=== PATIENT | female | born 1965 | race Caucasian/White ===

== ENCOUNTER 2021-05-26 17:09 | Emergency (ER) | payer BC ==
[2021-05-26] MEDS ORDERED: NA CHLORIDE 0.9% 1,000 ML ONE (18:18)
[2021-05-26] MEDS ORDERED: ONDANSETRON 4 MG/2 ML VIAL ONE (18:18)
[2021-05-26 18:39] LABS: Absolute Lymphocytes (CBC) 0.5 K/uL (0.7-4.9); Basophils % 0.2 % (0-1.3); Lymphocytes % 2.8 % (15.3-44.8); MPV 8.8 fL (7.6-11.3)
[2021-05-26 18:56] LABS: Albumin 3.9 g/dL (3.4-5.0); Bilirubin Direct 0.2 mg/dL (0-0.2); Bilirubin Total 0.7 mg/dL (0.2-1.0); Potassium 3.6 mmol/L (3.5-5.1); Protein, Total 8.6 g/dL (6.4-8.2)
--- NOTE | 2021-05-26 19:32 | RAD REPORT ---
EXAM DESCRIPTION: CTAbdomen Pelvis W Contrast - 05/26/2021 7:18 pm CLINICAL HISTORY: Abdominal pain. Abd pain;Nausea / vomiting COMPARISON: CT ABD PELVIS W CONTRAST dated 09/11/2011 TECHNIQUE: Biphasic CT imaging of the abdomen and pelvis was performed with 100 ml non-ionic IV cont rast. All CT scans are performed using dose optimization technique as appropriate and may include automated exposure control or mA/KV adjustment according to patient size. FINDINGS: The lung bases are clear.Small hiatal hernia. The liver demonstrates mild fatty infiltration. Spleen, pancreas, adrenal glands and kidneys are with in normal limits. No bowel obstruction, free air, free fluid or abscess. The appendix is normal. No evidence of signi ficant lymphadenopathy. No suspicious bony findings. IMPRESSION: No acute intra-abdominal or pelvic finding.
[2021-05-26 19:35] LABS: SARS-COV-2 RT PCR NEGATIVE (NEGATIVE)
--- NOTE | 2021-05-26 20:21 | ER ---
Nurse's Notes [facility] Name: Alba Grimes Age: 55 yrs Sex: Female : 1965 Arrival Date: 05/26/2021 Time: 17:12 Bed 15 Private MD: Diagnosis: Vomiting;Diarrhea, unspecified;Elevated white blood cell count Presentation: 05/26 17:17 Chief complaint: Patient states: n/v/d started this am no fever. Coronavirus screen: [facility] Vaccine status: Patient reports receiving the 2nd dose of the covid vaccine. Ebola Screen: No symptoms or risks identified at this time. Initial Sepsis Screen: Does the patient meet any 2 criteria? No. Patient's initial sepsis screen is negative. Does the patient have a suspected source of infection? Yes: No. Patient's initial sepsis screen is negative. Risk Assessment: Do you want to hurt yourself or someone else? Patient reports no desire to harm self or others. Onset of symptoms was May 25, 2021. 17:17 Method Of Arrival: Ambulatory [facility] 17:17 Acuity: BRIANNE [address] [facility] Triage Assessment: 17:21 General: Appears in no apparent distress. uncomfortable, well groomed, well nourished, [facility] Behavior is calm, cooperative. Pain: Complains of pain in epigastric area Pain does not radiate. Pain currently is 10 out of 10 on a pain scale. Quality of pain is described as burning, crampy, Pain began gradually, Is continuous. GI: Abdomen is flat, Abdomen is tender to palpation in epigastric area Reports upper abdominal pain, diarrhea, intolerance of fluids, intolerance of food, nausea. Historical: - Allergies: 17:20 No Known Allergies; [facility] - Home Meds: 17:20 pantoprazole 40 mg oral grps [Active]; [facility] - Immunization history:: Adult Immunizations up to date. - Social history:: Smoking status: Patient denies any tobacco usage or history of. - Family history:: not pertinent. - Hospitalizations: : No recent hospitalization is reported. Screenin:28 Abuse screen: Denies threats or abuse. Nutritional screening: No deficits noted. ap3 Tuberculosis screening: No symptoms or risk factors identified. Fall Risk None identified. Assessment: 18:26 General: Appears in no apparent distress. uncomfortable, Behavior is calm, cooperative, ap3 Reports feeling ill for 0-12 hours. Pain: Complains of pain in abdomen. Neuro: Level of Consciousness is awake, alert, obeys commands, Oriented to person, place, time, situation, Appropriate for age Moves all extremities. Speech is normal. Cardiovascular: Patient's skin is warm and dry. Rhythm is sinus tachycardia. Respiratory: Airway is patent Respiratory effort is even, unlabored, Respiratory pattern is regular, symmetrical. GI: Reports lower abdominal pain, upper abdominal pain, diarrhea, nausea, tolerance of fluids, tolerance of food, vomiting. 18:41 Reassessment: arrived at bedside. ap3 19:34 Reassessment: Returned from radiology. . avila 20:17 Reassessment: UA collected and processed. . avila 20:52 General: Cleared for discharge to home by the provider. IV was dc'd. She is alert and avila oriented. . GI: No signs and/or symptoms were reported involving the gastrointestinal system. Vital Signs: 17:17 BP 126 / 60; Pulse 122; Resp 18; Temp 98.4(O); Pulse Ox 98% on R/A; Weight 74.84 kg; jh6 Height 5 ft. 7 in. (170.18 cm); Pain 10/10; 18:29 BP 121 / 70; Pulse 104; Pulse Ox 98% on R/A; ap3 19:33 BP 130 / 56; Pulse 115; Resp 18; Temp 97.9; Pulse Ox 100% 0 lpm ; avila 20:58 BP 130 / 76; Pulse 101; Resp 15; Temp 98.9; Pulse Ox 100% 0 lpm ; avila 17:17 Body Mass Index 25.84 (74.84 kg, 170.18 cm) [facility] ED Course: 17:12 Patient arrived in ED. as 17:20 Triage completed. 6 17:22 Arm band placed on left wrist. 6 17:49 Neftali Gerber MD is Attending Physician. rn 17:52 Anupama Mckeon, NANCY is Primary Nurse. ap3 18:11 Initial lab(s) drawn, by me, sent to lab. COVID swab sent to lab. Flu and/or RSV swab ap3 sent to lab. 18:26 Inserted saline lock: 20 gauge in right antecubital area, using aseptic technique. ap3 Blood collected. 18:28 Patient has correct armband on for positive identification. Bed in low position. Call ap3 light in reach. Side rails up X2. Adult w/ patient. Pulse ox on. NIBP on. Door closed. Noise minimized. 19:17 Attending Physician role handed off by Neftali Gerber MD cha 19:17 Anshul Dutta MD is Attending Physician. merrill 19:18 CT Abd/Pelvis - IV Contrast Only In Process Unspecified. EDMS 19:24 Primary Nurse role handed off by Anupama Mckeon RN mw2 19:32 Carin Siegel is Primary Nurse. avila 20:26 Basic Metabolic Panel Sent. avila 20:52 No provider procedures requiring assistance completed. IV discontinued. avila Administered Medications: 18:25 Drug: NS 0.9% 1000 ml Route: IV; Rate: 1000 ml; Site: right antecubital; ap3 20:16 Follow up: IV Intake: 1000ml avila 20:55 Follow up: IV Intake: 1000ml avila 18:25 Drug: Zofran (Ondansetron) 4 mg Route: IVP; Site: right antecubital; ap3 20:16 Follow up: Response: Nausea is decreased avila 20:55 Follow up: Response: Nausea is decreased avila 20:55 Not Given (Patient Refused): Cipro (ciprofloxacin) 500 mg PO once avila Intake: 20:16 IV: 1000ml; Total: 1000ml. avila 20:55 IV: 1000ml; Total: 2000ml. avila Outcome: 20:21 Discharge ordered by . merrill 20:52 Discharged to home ambulatory. avila 20:52 Condition: improved 20:52 Discharge instructions given to patient, family. 21:00 Patient left the ED. avila Signatures: Dispatcher [employer] EDMN Anshul Dutta MD MD cha Martinez, Amelia as Nieto, Roman, MD MD rn Prokisch, Amanda RN RN ap3 Henry Rodriguez mw2 Maria Del Carmen Ambrosio RN RN 6 Carin Siegel avila
--- NOTE | 2021-05-26 20:21 | EDPHYS ---
Physician Documentation [facility] Name: Alba Grimes Age: 55 yrs Sex: Female : 1965 Arrival Date: 05/26/2021 Time: 17:12 Bed 15 Private MD: ED Physician Anshul Dutta HPI: 05/26 18:03 This 55 yrs old Female presents to ER via Ambulatory with complaints of rn Vomiting/Diarrhea. 18:03 The patient presents to the emergency department with nausea, vomiting, diarrhea, rn abdominal pain. Onset: The symptoms/episode began/occurred this morning. Possible causes: unknown. The symptoms are aggravated by nothing. The symptoms are alleviated by nothing. Associated signs and symptoms: Pertinent positives: abdominal pain, diarrhea, nausea, vomiting. Severity of symptoms: At their worst the symptoms were moderate in the emergency department the symptoms are unchanged. The patient has not experienced similar symptoms in the past. The patient has not recently seen a physician. Patient reports nausea/vomiting/diarrhea that began earlier today, reports about 10 episodes of each, nonbloody, no fever. Reports daughter had similar symptoms last week. Reports upper abdominal pain and cramping.. Historical: - Allergies: 17:20 No Known Allergies; [facility] - Home Meds: 17:20 pantoprazole 40 mg oral grps [Active]; [facility] - Immunization history:: Adult Immunizations up to date. - Social history:: Smoking status: Patient denies any tobacco usage or history of. - Family history:: not pertinent. - Hospitalizations: : No recent hospitalization is reported. ROS: 18:03 Constitutional: Negative for fever, chills, and weight loss, Eyes: Negative for injury, rn pain, redness, and discharge, ENT: Negative for injury, pain, and discharge, Neck: Negative for injury, pain, and swelling, Cardiovascular: Negative for chest pain, palpitations, and edema, Respiratory: Negative for shortness of breath, cough, wheezing, and pleuritic chest pain, Abdomen/GI: Positive for abdominal pain/vomiting/diarrhea Back: Negative for injury and pain, : Negative for injury, bleeding, discharge, and swelling, MS/Extremity: Negative for injury and deformity, Skin: Negative for injury, rash, and discoloration, Neuro: Negative for headache, numbness, tingling, and seizure. Exam: 18:03 Constitutional: This is a well developed, well nourished patient who is awake, alert, rn and in no acute distress. Head/Face: Normocephalic, atraumatic. Eyes: Periorbital areas with no swelling, redness, or edema. ENT: Dry mucous membranes Cardiovascular: Tachycardic, regular. No pulse deficits. Respiratory: No increased work of breathing, no retractions or nasal flaring. Abdomen/GI: Soft, mild epigastric tenderness. Skin: Warm, dry MS/ Extremity: Pulses equal, no cyanosis. Neuro: Awake and alert, GCS 15 Vital Signs: 17:17 BP 126 / 60; Pulse 122; Resp 18; Temp 98.4(O); Pulse Ox 98% on R/A; Weight 74.84 kg; 6 Height 5 ft. 7 in. (170.18 cm); Pain 10/10; 18:29 BP 121 / 70; Pulse 104; Pulse Ox 98% on R/A; ap3 19:33 BP 130 / 56; Pulse 115; Resp 18; Temp 97.9; Pulse Ox 100% 0 lpm ; avila 20:58 BP 130 / 76; Pulse 101; Resp 15; Temp 98.9; Pulse Ox 100% 0 lpm ; avila 17:17 Body Mass Index 25.84 (74.84 kg, 170.18 cm) [facility] MDM: 17:49 Patient medically screened. rn 18:55 Transition of care: After a detail discussion of the patient's case, care is rn transferred to Anshul Dutta MD. 05/26 18:02 Order name: Basic Metabolic Panel rn 14 18:02 Order name: CBC with Diff rn 05/26 18:02 Order name: Hepatic Function; Complete Time: 18:58 rn 14 18:02 Order name: Lipase; Complete Time: 18:58 rn 14 18:02 Order name: IV Saline Lock; Complete Time: 18:26 rn 05/26 18:02 Order name: CT Abd/Pelvis - IV Contrast Only; Complete Time: 19:44 rn 14 18:03 Order name: Basic Metabolic Panel; Complete Time: 18:58 EDSD 05/26 18:52 Order name: COVID-19/FLU A+B; Complete Time: 19:44 EDSD 05/26 20:39 Order name: CBC Smear Scan EDMS 05/26 18:02 Order name: Labs collected and sent; Complete Time: 18:26 rn 05/26 20:26 Order name: PO challenge; Complete Time: 20:55 merrill Administered Medications: 18:25 Drug: NS 0.9% 1000 ml Route: IV; Rate: 1000 ml; Site: right antecubital; ap3 20:16 Follow up: IV Intake: 1000ml avila 20:55 Follow up: IV Intake: 1000ml avila 18:25 Drug: Zofran (Ondansetron) 4 mg Route: IVP; Site: right antecubital; ap3 20:16 Follow up: Response: Nausea is decreased avila 20:55 Follow up: Response: Nausea is decreased avila 20:55 Not Given (Patient Refused): Cipro (ciprofloxacin) 500 mg PO once avila Disposition Summary: 05/26/21 20:21 Discharge Ordered Location: Home merrill Problem: new merrill Symptoms: have improved merrill Condition: Stable merrill Diagnosis - Vomiting merrill - Diarrhea, unspecified merrill - Elevated white blood cell count merrill Followup: merrill - With: Private Physician - When: 2 - 3 days - Reason: Recheck today's complaints, Continuance of care, Re-evaluation by your physician Discharge Instructions: - Discharge Summary Sheet [facility] - Food Choices to Help Relieve Diarrhea, Adult merrill - Diarrhea, Adult merrill - Diarrhea, Adult, [id number] merrill - Vomiting, Adult [facility] Forms: - Medication Reconciliation Form [facility] - Thank You Letter [facility] - Antibiotic Education [facility] - Prescription Opioid Use [facility] Prescriptions: - ondansetron 4 mg Oral tablet,disintegrating - take 1 tablet by ORAL route 3 times per day; 20 tablet; Refills: 0, Product [facility] Selection Permitted - promethazine 25 mg Rectal suppository - insert 1 suppository by RECTAL route every 6 hours; 15 suppository; Refills: 0, [facility] Product Selection Permitted - Cipro 500 mg Oral Tablet - take 1 tablet by ORAL route every 12 hours for 3 days; 6 tablet; Refills: 0, [facility] Product Selection Permitted Signatures: Dispatcher [employer] EDAnshul Trammell MD MD cha Nieto, Roman, MD MD rn Prokisch, Amanda RN RN ap3 Maria Del Carmen Ambrosio RN RN jh6 EmilyStageCarin whitfield Corrections: (The following items were deleted from the chart) 18:52 18:03 SARS-COV-2 RT PCR+MOL.LAB.DEBBI ordered. EDMS EDMS 18:52 18:03 Influenza Screen (A \T\ B)+BA.LAB.DEBBI ordered. EDMS EDMS
[2021-05-26 20:39] LABS: Blood Morphology Comment NOT SEEN (NOT SEEN); Platelet Estimate ADEQ; White Blood Cell Scan OK (OK)
[2021-05-26 21:08] VITALS: O2SAT 100
[2021-05-26 21:10] VITALS: BP 130/76; TEMP 98.9
== END 2021-05-26 21:00 | disposition home or self-care (01) ==
LOC: ER 17:09
DX: R19.7 Diarrhea, unspecified (principal); D72.829 Elevated white blood cell count, unspecified; Z20.822 Contact with and (suspected) exposure to COVID-19
CPT/HCPCS: 85025; 80048; 36415; 80076; 83690; 0240U; 74177; Q9967; J7030; J2405; 96374; 99284